=== PATIENT | male | born 1980 | race Two or more races ===

== ENCOUNTER 2016-11-01 16:29 | Emergency (ER) | payer OTHER ==
[~2016-11-01] VITALS: Ht 165.1 cm; Wt 84.8 kg
[2016-11-01 16:29] VITALS: BP 102/74
== END 2016-11-01 17:47 | disposition home or self-care (01) ==
LOC: ER 16:31
DX: M17.11 Unilateral primary osteoarthritis, right knee (principal); F17.200 Nicotine dependence, unspecified, uncomplicated
CPT/HCPCS: 73564-TC; A4606; Z7610

== ENCOUNTER 2019-03-07 18:11 | Emergency (ER) | payer OTHER ==
[~2019-03-07] VITALS: Ht 170.2 cm; Wt 89.8 kg
[2019-03-07 18:24] VITALS: BP 144/94
--- NOTE | 2019-03-07 18:47 | NUR ---
[facility] JOINER AT BEDSIDE
[2019-03-07] MEDS ORDERED: DEXAMETHASONE SOD PHOSPHATE 10 MG/ML VIAL ONE (18:58)
[2019-03-07] MEDS ORDERED: DEXAMETHASONE SOD PHOSPHATE 4 MG/ML VIAL IM ONE (19:00)
--- NOTE | 2019-03-07 19:06 | NUR ---
Patient discharged to home in stable condition. Written and verbal after care instructions given. Patient verbalizes understanding of instruction.
== END 2019-03-07 19:07 | disposition home or self-care (01) ==
LOC: ER 18:11
DX: L23.9 Allergic contact dermatitis, unspecified cause (principal); M54.9 Dorsalgia, unspecified; G89.29 Other chronic pain; F17.210 Nicotine dependence, cigarettes, uncomplicated; E66.9 Obesity, unspecified; Z98.890 Other specified postprocedural states; Z68.31 Body mass index [BMI] 31.0-31.9, adult
CPT/HCPCS: 96372; 99283; J1100

== ENCOUNTER 2020-04-29 14:00 | Emergency (ER) | payer OTHER ==
[~2020-04-29] VITALS: Ht 172.7 cm; Wt 79.4 kg
[2020-04-29 14:30] VITALS: BP 143/92
--- NOTE | 2020-04-29 15:04 | NUR ---
Patient discharged to home in stable condition. Written and verbal after care instructions given. Patient verbalizes understanding of instruction.
== END 2020-04-29 15:03 | disposition home or self-care (01) ==
LOC: ER 14:05
DX: U07.1 COVID-19 (principal); R51.9 Headache, unspecified; F17.210 Nicotine dependence, cigarettes, uncomplicated; G83.9 Paralytic syndrome, unspecified; T14.8XXS Other injury of unspecified body region, sequela; X99 Assault by sharp object
CPT/HCPCS: 99283; C9803; U0003